=== PATIENT | female | born 1985 ===

== ENCOUNTER 2017-05-19 07:46 | Inpatient (IN) | payer MEDICAID ==
[2017-05-18 16:10] VITALS: BMI 26.4
[2017-05-19] MEDS ORDERED: Lactated Ringer's 1,000 ML IV ONE ×2 (08:30→10:22)
[2017-05-19] MEDS ORDERED: Propofol 10 mg/ml Inj (20 ML) ONE (08:30)
[2017-05-19] MEDS ORDERED: Midazolam 2 MG/2 ML VIAL ONE (08:30)
[2017-05-19] MEDS ORDERED: ePHEDrine 50 mg/ml Inj ONE (08:31)
[2017-05-19] MEDS ORDERED: Rocuronium 10 mg/ml (5 ml) ONE (08:31)
[2017-05-19] MEDS ORDERED: Sevoflurane - Inhalation Anesthetic Liq (250 ml) ONE (08:33)
[2017-05-19] MEDS ORDERED: Lidocaine 4% (Laryng-O-Jet) Kit MM ONE (08:33)
[2017-05-19] MEDS ORDERED: SULFANILAMIDE (AVC) VAG CREAM VG ONE (08:34)
[2017-05-19] MEDS ORDERED: ceFAZolin IV 1 gm in Dextrose 1 GM/50 ML BAG IVPB ONE (08:34)
[2017-05-19 08:47] LABS: HEMATOCRIT 39.1 % (34.0-47.0); MEAN CORPUSCULAR HEMOGLOBIN 30.1 pg (27.0-31.0); MEAN CORPUSCULAR HGB CONC 34.6 g/dL (33.0-37.0); RED CELL DISTRIBUTION WIDTH 12.8 % (11.5-14.5); WHITE BLOOD COUNT 7.7 K/uL (4.8-10.8)
[2017-05-19] MEDS ORDERED: Bupivacaine-Epi 0.5%-1:200,000 PF Inj IJ ONE (10:05)
[2017-05-19] MEDS ORDERED: Dexamethasone 4 mg/1 ml ONE (10:17)
[2017-05-19] MEDS ORDERED: Bupivacaine HCl/Epi 0.5% 1:20000 30 ML SOL IJ ONE (11:00)
[2017-05-19] MEDS ORDERED: HYDROmorphone 0.5 mg/0.5 ml ISec IVP PRN (11:26)
[2017-05-19] MEDS ORDERED: Lactated Ringer's 1,000 ML IV SCH (11:30)
--- NOTE | 2017-05-19 11:38 | PCM.SURG1 ---
Surgeon's Initial Post Op Note - Surgeon's Notes Surgeon: Nikita mancilla MD Candle Maker: Millicent ALBRECHT Type of Anesthesia: General Endo, Local Pre-Operative Diagnosis: REctocele. Cystocele. Urinary incontinence. Fecal incontinence (fluid). Pelvic pain. Dysparunia Operative Findings: Rectocele advanced. Cystocele. Short perineal body. RElaxed vaginal opening. Hyper mobile urethra Post-Operative Diagnosis: REctocele. Cystocele. Urinary incontinence. Fecal incontinence (fluid). Pelvic pain. Dysparunia Operation Performed: AP vaginal repair colporhaphy. Sphincteroplasty. Midurethral sling. Cystoscpoyp[ Specimen/Specimens Removed: vaginal mucosa Estimated Blood Loss: EBL {In ML}: 20 Blood Products Given: N/A Drains Used: No Drains Post-Op Condition: Good Date of Surgery/Procedure: 05/19/17 Time of Surgery/Procedure: 11:39
--- NOTE | 2017-05-19 16:13 | PCM.OP ---
Operative Report - Operative Report Date of Surgery/Procedure: 05/19/17 Time of Surgery/Procedure: 16:11 Surgeon: tasneem mancilla md [employer] Drawer: niels ALBRECHT Anesthesia/Sedation: General with ET tube Pre-Operative Diagnosis: Chronic pelvic pain. Rectocele. Cystocele. Urinary incontience. Fecal incontinence Post-Operative Diagnosis: Chronic pelvic pain. Rectocele. Cystocele. Urinary incontience. Fecal incontinence Indication for Surgery: worsening pelvic pain, rectocelel, urinary and fecal incontinence Operative Findings: advanced rectocele, incomplete episiotomy repair, incomplete sphintcer support. normal bladder and urethral anatomy Procedure/Operation Description: AP vaginal repair colporhaphy. Anal Sphincteroplasty. Perineal reconstruction. midurethral sling procedure. cystoscopy. DESCRIPTION: This is a 32 years old female with long-standing and worsening symptoms of vaginal vault prolapse, rectocele and fecal and urinary incontinence for several years. The patient is reporting leakage of feces as well as urine upon any exertion, coughing sneezing as well as vaginal bulge and pressure in the pelvis. For the past several years, these symptoms of involuntary leakage of urine and vaginal pressure have been worsening; she describes these symptoms as debilitating and adversely affecting her quality of life. A comprehensive urinary incontinence workup was completed which included a TVUS, multichannel complex urodynamic study, urinalysis and cultures. The preoperative workup supports a diagnosis of stress urinary incontinence along with urgency and detrusor instability and symptomatic rectocele and fecal incontinence. The patient failed conservative management which included Kegels exercises as well as lifestyle changes and other pelvic floor rehabilitation exercises. A prolong and detailed discussion about conservative versus surgical management of urinary incontinence and rectocele and fecal incontinence was completed. The patient is reporting these symptoms as worsening since her last vaginal delivery years back for which is recalls a traumatic vaginal delivery of approx a 10 lbs . The traumatic delivery led to a fourth degree episiotomy which was suboptimaly repaired. This led to fecal incontinence and severe vaginal vault prolapse since. The patient is also reporting chronic urinary incontinence, stress type since that delivery with worsening severity. The patient reperted improving pelvic pressure and pain following the hysterectomy and colposuspenssion and some improvement with urinary urgency and frequency, however, no improvement with stress urinary incontinence. The patient elected to proceed with surgical management of rectocele repair, sphincter repair and urinary incontinence. A decision was made to proceed with an posterior vaginal repair and mid-urethral sling procedure using polypropylene mesh material and sphincteroplasty. After a detailed discussion regarding the pros and cons of sling procedure and the utilization of polypropylene mesh material, all risks were reviewed including but not limited to, risk of infection, mesh erosion, postoperative pain and dyspareunia. In addition, the FDA warning about mesh utilization for prolapse and incontinence surgery was reviewed in details, and a detailed and specific written informed consent was obtained. The patient elected to proceed with a Midurethral sling and prolapse repair today fully understanding and accepting the risks associated with utilizing polypropylene mesh material. Other alternatives were also offered to the patient, including a biological graft such as porcine sling as well as the patient owns fascia for sling material and prolapse repair, she elected to proceed with a primary repair for the rectocele with no mesh as well as a polypropylene mesh sling despite all the associated risks. After proper consent was obtained from the patient, patient was taken to the operating room, placed in the dorsolithotomy position; general anesthesia was obtained without difficulty. She was placed in the dorsal lithotomy position, her legs were placed in adjustable Raymond stirrups, and careful attention was placed not to over flex or over rotates the lower extremities and the hip or knee joints. Harrington catheter was inserted under sterile conditions. She was prepped and draped appropriately for an posterior colporhaphy, sphincteroplasty and mid-urethral sling procedure. Palpation identified the urethral length and the bladder neck. A sagittal incision was made in the vaginal epithelium in the postrior compartment beginning at the forchettte, moving proximally towards the apex of the vagina. Lateral dissection underneath the epithelium was performed, leaving a thick flap between the vagina and rectum. The vaginal epithelium was undermined to the vaginal apex, exposing the underlying rectocele and posterior compartment defect. prior to the repair of the posterior defect, the rectal external sphincter was disected off and in a intterupted fashion, the muscle was imbricated in multiple fashior in a circular fashion. this provided support and reiforcement of a sphincter which was disrupted likely during a prior episiotomy in the past. the muscle was reapproximated and imprricated withour tension. next, the postrior defect in the posterior wall was identified and Multiple interrupted sutures using o vicryl material was used. the rectovaginal fascia was re-approximated all the way extending to the apex of the vagina. The rectocele was reduced under the approximation of endopelvic fascia. Redundant vaginal mucosa was excised and the vaginal incision was then closed using a running 2-0 Vicryl ligature. perineoorphy was completed by recreating the perineal body with multiple 0 vycryl suture in interuppeted suture. Careful approximation of the vaginal mucosa was performed. The anterior vaginal wall over the Midurethral area was grasped with a pair of Allis clamps and tenting the vaginal wall from the underlying urethra. Local anesthetic solution of 0.25% Marcaine with epinephrine diluted 1:1 was used to infiltrate the periurethral space. A total of 20 cc was utilized. Using a scalpel, a Midurethral vertical incision about 1 cm was made through the vaginal epithelium and periurethral fascia. Careful lateral sharp dissection using Metzenbaum scissors towards the inferior pubic ramus to eventually allow the sling graft to lie flat against the urethra. Next, the sling mesh was loaded onto the needle tip. The needle tip was inserted through one side of the incision towards the medial edge of the obturator foramen approximately 45 degrees of the horizontal plane. Using an arching motion, the needle tip was advanced through pushing the obturator internus muscle. The needle was released from the graft and loaded on the other side of the sling ready for deployment to the contralateral side. Ensuring the sling is flat on the urethra and not twisted, the needle was advanced in an arching motion towards the obturator internus muscle on the opposite site. Attention was readdressed to allow a flat placement with tension- free sling on the midurethra region. Following saline irrigation and good hemostasis was noted, the vaginal mucosa was closed with 2- 0 Vicryl in a locking fashion. At this time, the Harrington catheter was removed and a diagnostic cystoscopy was performed. The bladder was distended with about 300 cc of fluid. Both ureteral orifices were noted to be fluxing urine normally. The trigone was normal. There were no noted abnormalities with any evidence of any compromise of the lower urinary tract with mesh material, sutures or instruments. The patient emerged from general anesthesia without any difficulty. The patient was taken to the recovery room in stable condition. Prior to incision patient received prophylactic antibiotics, prior to closure sponge lap and needle counts are correct x2. The 2-inch iodoform gauze vaginal packing was then placed to prevent hematoma formation underneath the vaginal mucosa. Needle, sponge, and instrument counts were correct. Estimated Blood Loss: 20 Blood Replaced: none Sponge/Instrument Count: correct times 2 Drains: none Complications: none Specimen: vaginal mucosa Discharge & Condition: post op day 1 when criteria met
[2017-05-19] MEDS ORDERED: Oxycodone/Acetaminophen 5/325 mg Tab PO PRN (16:15)
[2017-05-19] MEDS ORDERED: ceFAZolin IV 2 gm in Dextrose 2 GM/50 ML BAG IVPB SCH (17:00)
[2017-05-19] MEDS: ceFAZolin IV 2 gm in Dextrose 2 GM/50 ML BAG IVPB SCH (19:49)
[2017-05-19] MEDS: Sodium Chloride 0.9% 1,000 ML IV SCH (19:49)
[2017-05-20] MEDS: ceFAZolin IV 2 gm in Dextrose 2 GM/50 ML BAG IVPB SCH ×2 (03:33→10:39)
[2017-05-20] MEDS: Sodium Chloride 0.9% 1,000 ML IV SCH (03:36)
[2017-05-20 04:42] VITALS: RESP 20
[2017-05-20 07:54] LABS: BASO % 0.3 % (0.0-2.0); EOS % 0.1 % (0.0-4.0); HEMATOCRIT 33.8 % (34.0-47.0); LYMPH % 13.7 % (20.0-40.0); MEAN CELL VOLUME 87.2 fl (81.0-99.0); MEAN CORPUSCULAR HEMOGLOBIN 30.3 pg (27.0-31.0); MEAN CORPUSCULAR HGB CONC 34.7 g/dL (33.0-37.0); MEAN PLATELET VOLUME 8.9 fl (7.2-11.7); MONO % 6.7 % (0.0-10.0); NEUT # 11.5 K/uL (1.8-7.0); NEUT % 79.2 % (50.0-75.0); RED CELL DISTRIBUTION WIDTH 12.9 % (11.5-14.5); WHITE BLOOD COUNT 14.5 K/uL (4.8-10.8)
[2017-05-20 08:06] LABS: BLOOD UREA NITROGEN 13 mg/dl (7-17); CALCIUM 8.4 mg/dL (8.4-10.2); CARBON DIOXIDE 24 mmol/L (22-30); CHLORIDE 109 mmol/L (98-107); GFR AFRICAN-AMERICAN > 60; GLUCOSE,RANDOM 107 mg/dL (65-105); POTASSIUM 4.2 MMOL/L (3.6-5.0); SODIUM 139 mmol/l (132-148)
[2017-05-20 08:56] VITALS: BP 111/53
--- NOTE | 2017-05-20 11:02 | CP.PCM.PN ---
Subjective - Date & Time of Evaluation Date of Evaluation: 05/20/17 Time of Evaluation: 10:00 - Subjective Subjective: Note for Dr. Rivera Patient seen and examined at bedside this morning. Len D/Sophy this AM. self voided. Packing removed at bedside. Tolerating diet. +OOB. Denies fevers, chills , chest pain, shortness of breath, nausea, vomiting diarrhea. Objective - Vital Signs/Intake and Output Vital Signs (last 24 hours): Temp Pulse Resp BP Pulse Ox 99.0 F 91 H 20 111/53 L 98 05/20/17 08:25 05/20/17 08:25 05/20/17 08:25 05/20/17 08:25 05/20/17 08:25 Intake and Output: 05/20/17 05/20/17 06:59 18:59 Intake Total 2560 Output Total 2100 Balance 460 - Medications Medications: Current Medications Hydromorphone HCl (Dilaudid) 2 mg IVP Q3H PRN PRN Reason: Pain, severe (8-10) Lactated Ringer's (Lactated Ringer's) 1,000 mls @ 125 mls/hr IV .Q8H [facility] Sodium Chloride (Sodium Chloride 0.9%) 1,000 mls @ 125 mls/hr IV .Q8H [facility] Last Admin: 05/20/17 03:36 Dose: 125 mls/hr Cefazolin Sodium/Dextrose (Ancef Iv 2 Gm Duplex) 2 gm in 50 mls @ 50 mls/hr IVPB Q8H HARRY PRN Reason: Protocol Last Admin: 05/20/17 10:39 Dose: 50 mls/hr Ketorolac Tromethamine (Toradol) 30 mg IVP 0000,0600,1200,1800 [facility] Last Admin: 05/20/17 06:00 Dose: Not Given Ondansetron HCl (Zofran Inj) 4 mg IVP Q6 PRN PRN Reason: Nausea/Vomiting Oxycodone/Acetaminophen (Percocet 5/325 Mg Tab) 2 tab PO Q4H PRN PRN Reason: Pain, moderate (4-7) Stop: 05/22/17 16:16 - Labs Labs: 05/20/17 07:15 05/20/17 07:15 - Constitutional Appears: Non-toxic, No Acute Distress - Head Exam Head Exam: ATRAUMATIC - Eye Exam Eye Exam: EOMI. absent: Scleral icterus - ENT Exam ENT Exam: Mucous Membranes Moist - Respiratory Exam Respiratory Exam: NORMAL BREATHING PATTERN. absent: Accessory Muscle Use, Respiratory Distress - Cardiovascular Exam Cardiovascular Exam: +S1, +S2. absent: Bradycardia, Tachycardia - GI/Abdominal Exam GI & Abdominal Exam: Soft. absent: Distended, Firm, Guarding, Rigid, Tenderness - Exam Exam: NORMAL INSPECTION - Extremities Exam Extremities Exam: Normal Inspection. absent: Calf Tenderness - Neurological Exam Neurological Exam: Alert, Awake, Oriented x3 - Psychiatric Exam Psychiatric exam: Normal Affect - Skin Skin Exam: Normal Color, Warm Assessment and Plan - Assessment and Plan (Free Text) Assessment: 32F s/p AP vaginal repair colporhaphy. Sphincteroplasty. Midurethral sling. Cystoscpoypy POD1 Plan: - follow up as outpatient in 1-2 weeks - no heavy lifting greater than 10lbs for 4-6 weeks after surgery - all sutures are absorbable - if fever greater tahn 100.4 take over the counter Tylenol. If fever does not resolve go to the Emergency Department - further recs per Dr. Nicole Fu PGY1
[2017-05-20 12:25] VITALS: PULSE 81; TEMP 99.4; O2SAT 99
== END 2017-05-20 16:00 | disposition home or self-care (01) | DRG 356 ==
LOC: H.OPSURG 07:46 → H.PEDS 16:15
PROVIDERS: ADMIT Obstetrics & Gynecology; ATTEND Obstetrics & Gynecology
PROC: 0USG0ZZ Reposition Vagina, Open Approach (ICD-10-PCS; 2017-05-19)
PROC: 0DQR0ZZ Repair Anal Sphincter, Open Approach (ICD-10-PCS; 2017-05-19)
PROC: 0KQM0ZZ Repair Perineum Muscle, Open Approach (ICD-10-PCS; 2017-05-19)
PROC: 0TSD0ZZ Reposition Urethra, Open Approach (ICD-10-PCS; 2017-05-19)
PROC: 0JQC0ZZ Repair Pelvic Region Subcutaneous Tissue and Fascia, Open Approach (ICD-10-PCS; principal; 2017-05-19 09:15)
DX: N81.6 Rectocele (principal); R15.9 Full incontinence of feces; N36.41 Hypermobility of urethra; N81.10 Cystocele, unspecified; Z91.040 Latex allergy status; N94.10 Unspecified dyspareunia; N39.46 Mixed incontinence